=== PATIENT | male | born 1985 | race Native Hawaiian/Other Pacific Islander ===

== ENCOUNTER 2018-04-18 01:01 | Emergency (ER) | payer OTHER ==
[~2018-04-18] VITALS: Ht 177.8 cm; Wt 66.1 kg
[~2018-04-18 01:01] MED LIST: CIPR500T4 PO; FLAG500T PO; ZOFR4TAB3 SL
[2018-04-18 01:05] VITALS: BP 142/96; PULSE 96; RESP 16; TEMP 97.5; O2SAT 97
[2018-04-18] MEDS ORDERED: diphenhydrAMINE HCL 50 MG/ML VIAL IV PUSH ONE (01:30)
[2018-04-18] MEDS ORDERED: PROCHLORPERAZINE INJ 10 MG/2 ML VIAL IV PUSH ONE (01:30)
[2018-04-18] MEDS ORDERED: SODIUM CHLOR 0.9% 1000 ML INJ 1,000 ML IV ONE ×2 (01:30→03:15)
[2018-04-18 01:41] VITALS: BP 145/98; PULSE 84
[2018-04-18] MEDS ORDERED: ONDANSETRON HCL 4 MG/2 ML VIAL IV PUSH ONE (01:45)
[2018-04-18] MEDS ORDERED: SODIUM CHLOR 0.9% 1000 ML INJ 1,000 ML IV SCH (02:25)
[2018-04-18 02:30] VITALS: BP 130/76; PULSE 88
[2018-04-18] MEDS ORDERED: DICYCLOMINE HCL 20 MG/2 ML VIAL IM ONE (02:30)
[2018-04-18] MEDS ORDERED: SODIUM CHLORIDE 0.9% FLUSH 10 ML FLUSH IV FLUSH PRN (02:30)
[2018-04-18 02:46] LABS: BASOPHIL # 0.1 TH/MM3 (0-0.2); EOSINOPHIL % 0.4 % (0.0-4.0); HEMATOCRIT 48.3 % (39.0-51.0); LYMPH % 11.3 % (9.0-44.0); LYMPHOCYTE # 1.1 TH/MM3 (1.0-4.8); MEAN CELL VOLUME 83.6 FL (80.0-100.0); MEAN CORPUSCULAR HEMOGLOBIN 27.8 PG (27.0-34.0); MEAN CORPUSCULAR HGB CONC 33.2 % (32.0-36.0); MEAN PLATELET VOLUME 10.1 FL (7.0-11.0); MONO % 2.9 % (0.0-8.0); MONOCYTE # 0.3 TH/MM3 (0-0.9); NEUT % 84.4 % (16.0-70.0); PLATELET COUNT 198 TH/MM3 (150-450); RED BLOOD COUNT 5.78 MIL/MM3 (4.50-5.90); RED CELL DISTRIBUTION WIDTH 12.2 % (11.6-17.2); WHITE BLOOD COUNT 9.5 TH/MM3 (4.0-11.0)
[2018-04-18 02:50] LABS: BILIRUBIN, URINE NEG (NEG); BLOOD, URINE NEG (NEG); GLUCOSE,URINE NEG (NEG); KETONE, URINE 15 mg/dL (NEG); NITRITE,URINE NEG (NEG); URINE COLOR YELLOW (YELLW/STRAW); URINE LEUKOCYTE ESTERASE NEG (NEG)
[2018-04-18 02:53] LABS: CHLORIDE 107 MEQ/L (98-107); SODIUM (NA) 142 MEQ/L (136-145)
[2018-04-18 02:53] LABS: AMORPHOUS SEDIMENT, URINE LARGE; RBC, URINE 0-2 /hpf (0-3); SQUAMOUS EPITHELIAL CELL URINE 0-5 /hpf (0-5); WBC, URINE 0-2 /hpf (0-5)
--- NOTE | 2018-04-18 02:56 | PD ---
HPI . Vomiting and abdominal pain Chief Complaint: GI Complaint Time Seen by Provider: 01:25 Travel History International Travel<30 days: No Contact w/Intl Traveler<30days: No Traveled to known affect area: No History of Present Illness HPI This patient presents with the acute onset of nausea, vomiting and abdominal pain. It started after supper tonight. He reports 7-8 episodes of emesis prior to arrival. No fever. No diarrhea. No known sick contacts. No known tainted food. No one else who ate the same thing for supper tonight has gotten sick. Patient reports several previous similar episodes. [facility] Past Medical History Medical History: Denies Significant Hx Diminished Hearing: No Immunizations Current: No Tetanus Vaccination: > 5 Years Influenza Vaccination: No Past Surgical History Appendectomy: Yes Tonsillectomy: Yes Social History Alcohol Use: Yes (OCCASIONAL) Tobacco Use: No Substance Use: No Allergies-Medications (Allergen,Severity, Reaction): Coded Allergies: No Known Allergies (Unverified Adverse Reaction, Unknown, 04/18/18) Reported Meds & Prescriptions Reported Meds & Active Scripts Active No Active Prescriptions or Reported Medications Review of Systems Except as stated in HPI: all other systems reviewed are Neg Physical Exam Narrative Vital Signs Date Time Temp Pulse Resp B/P (MAP) Pulse Ox O2 Delivery O2 Flow Rate FiO2 04/18/18 01:41 84 145/98 (114) 04/18/18 01:05 97.5 96 16 142/96 (111) 97 GENERAL: Awake and alert. He does have occasional episodes of retching. SKIN: warm/dry. HEAD: Normocephalic. Atraumatic. EYES: Pupils equal and round. No scleral icterus. No injection or drainage. ENT: No nasal bleeding or discharge. Mucous membranes pink and moist. NECK: Trachea midline. Full range of motion without pain.. CARDIOVASCULAR: Regular rate and rhythm. RESPIRATORY: No accessory muscle use. Clear to auscultation. Breath sounds equal bilaterally. GASTROINTESTINAL: Abdomen soft. Mid abdominal tenderness. Bowel sounds present. Nondistended. MUSCULOSKELETAL: No obvious deformities. NEUROLOGICAL: Awake and alert. No obvious cranial nerve deficits. Motor grossly within normal limits. Normal speech. PSYCHIATRIC: Appropriate mood and affect; insight and judgment normal. Data Data Last Documented VS Vital Signs Date Time Temp Pulse Resp B/P (MAP) Pulse Ox O2 Delivery O2 Flow Rate FiO2 04/18/18 03:24 85 137/92 (107) 99 Room Air 04/18/18 01:05 97.5 16 Orders Orders Sodium Chlor 0.9% 1000 Ml Inj (Ns 1000 M (04/18/18 01:30) Prochlorperazine Inj (Compazine Inj) (04/18/18 01:30) Diphenhydramine Inj (Benadryl Inj) (04/18/18 01:30) Ondansetron Inj (Zofran Inj) (04/18/18 01:45) Dicyclomine Inj (Bentyl Inj) (04/18/18 02:30) Complete Blood Count With Diff (04/18/18 02:25) Comprehensive Metabolic Panel (04/18/18 02:25) Lipase (04/18/18 02:25) Urinalysis - C+S If Indicated (04/18/18 02:25) Iv Access Insert/Monitor (04/18/18 02:25) Sodium Chlor 0.9% 1000 Ml Inj (Ns 1000 M (04/18/18 02:25) Sodium Chloride 0.9% Flush (Ns Flush) (04/18/18 02:30) Sodium Chlor 0.9% 1000 Ml Inj (Ns 1000 M (04/18/18 03:15) Ketorolac Inj (Toradol Inj) (04/18/18 03:15) Labs Laboratory Tests Test 04/18/18 01:23 04/18/18 02:35 White Blood Count 9.5 TH/MM3 Red Blood Count 5.78 MIL/MM3 Hemoglobin 16.0 GM/DL Hematocrit 48.3 % Mean Corpuscular Volume 83.6 FL Mean Corpuscular Hemoglobin 27.8 PG Mean Corpuscular Hemoglobin Concent 33.2 % Red Cell Distribution Width 12.2 % Platelet Count 198 TH/MM3 Mean Platelet Volume 10.1 FL Neutrophils (%) (Auto) 84.4 % Lymphocytes (%) (Auto) 11.3 % Monocytes (%) (Auto) 2.9 % Eosinophils (%) (Auto) 0.4 % Basophils (%) (Auto) 1.0 % Neutrophils # (Auto) 8.0 TH/MM3 Lymphocytes # (Auto) 1.1 TH/MM3 Monocytes # (Auto) 0.3 TH/MM3 Eosinophils # (Auto) 0.0 TH/MM3 Basophils # (Auto) 0.1 TH/MM3 CBC Comment DIFF FINAL Differential Comment Blood Urea Nitrogen 14 MG/DL Creatinine 0.98 MG/DL Random Glucose 107 MG/DL Total Protein 8.2 GM/DL Albumin 4.4 GM/DL Calcium Level 9.6 MG/DL Alkaline Phosphatase 113 U/L Aspartate Amino Transf (AST/SGOT) 21 U/L Alanine Aminotransferase (ALT/SGPT) 36 U/L Total Bilirubin 1.2 MG/DL Sodium Level 142 MEQ/L Potassium Level 3.4 MEQ/L Chloride Level 107 MEQ/L Carbon Dioxide Level 28.2 MEQ/L Anion Gap 7 MEQ/L Estimat Glomerular Filtration Rate 89 ML/MIN Lipase 178 U/L Urine Color YELLOW Urine Turbidity CLOUDY Urine pH 8.0 Urine Specific [place] 1.015 Urine Protein TRACE mg/dL Urine Glucose (UA) NEG mg/dL Urine Ketones 15 mg/dL Urine Occult Blood NEG Urine Nitrite NEG Urine Bilirubin NEG Urine Urobilinogen 0.2 MG/DL Urine Leukocyte Esterase NEG Urine RBC 0-2 /hpf Urine WBC 0-2 /hpf Urine Squamous Epithelial Cells 0-5 /hpf Urine Amorphous Sediment LARGE Urine Bacteria NONE /hpf Microscopic Urinalysis Comment CULT NOT INDICATED MDM Medical Decision Making Medical Screen Exam Complete: Yes Emergency Medical Condition: Yes Differential Diagnosis Differential diagnosis includes but is not limited to viral gastritis, food poisoning, pancreatitis, pneumonia, hepatitis, acute coronary syndrome, Narrative Course This patient presents with acute nausea, vomiting and mid abdominal pain. He had active retching on arrival here. I ordered IV fluids and IV Compazine and Benadryl for him. He refused the Compazine and Benadryl because his has had a previous adverse reaction. The nurse was able to learn from the pharmacy that we do have some IV Zofran in stock. That has been ordered and given. The patient has continued to have occasional episodes of retching. The patient has been requesting pain medication. I have given him Bentyl. Routine abdominal pain labs are pending. The patient has refused CT. CBC & BMP Diagram 04/18/18 01:23 Total Protein 8.2, Albumin 4.4, Calcium Level 9.6, Alkaline Phosphatase 113, Aspartate Amino Transf (AST/SGOT) 21, Alanine Aminotransferase (ALT/SGPT) 36, Total Bilirubin 1.2 H UA is negative for infection. I will give him another liter of fluid and some IV Toradol. He is now sleeping and has had no emesis for an hour or so. Diagnosis Primary Impression: Abdominal pain Qualified Codes: R10.84 - Generalized abdominal pain Additional Impression: Vomiting Qualified Codes: R11.2 - Nausea with vomiting, unspecified Patient Instructions: Abdominal Pain (ED), Acute Nausea and Vomiting (DC), General Instructions Scripts No Active Prescriptions or Reported Meds Disposition: 01 DISCHARGE HOME Condition: Stable Kacey Macias MD April 18, 2018 02:56
[2018-04-18 02:57] LABS: ALBUMIN 4.4 GM/DL (3.4-5.0); BICARBONATE 28.2 MEQ/L (21.0-32.0); BLOOD UREA NITROGEN 14 MG/DL (7-18); CALCIUM 9.6 MG/DL (8.5-10.1); GLUCOSE,RANDOM 107 MG/DL (74-106)
[2018-04-18 03:00] LABS: ALT (GPT) 36 U/L (12-78); AST (GOT) 21 U/L (15-37); CREATININE 0.98 MG/DL (0.60-1.30); GLOMERULAR FILTRATION RATE 89 ML/MIN (>89)
[2018-04-18 03:01] LABS: TOTAL BILIRUBIN ADULT 1.2 MG/DL (0.2-1.0); TOTAL PROTEIN 8.2 GM/DL (6.4-8.2)
[2018-04-18 03:03] LABS: ALKALINE PHOSPHATASE 113 U/L (45-117)
[2018-04-18] MEDS ORDERED: KETOROLAC TROMETHAMINE 30 MG/ML (IVP) VIAL IV PUSH ONE (03:15)
[2018-04-18 03:24] VITALS: BP 137/92; PULSE 85; O2SAT 99
[2018-04-18] MEDS ORDERED: ZOFR4TAB3 SL (04:24)
== END 2018-04-18 04:32 | disposition home or self-care (01) ==
LOC: PHED 01:01
DX: R10.84 Generalized abdominal pain (principal); R11.2 Nausea with vomiting, unspecified
CPT/HCPCS: 80053; 81001; 83690; 85025; 96361; 96372; 96374; 96375; 99284; J0500; J1885; J2405; J7030